=== PATIENT | female | born 1950 | race African-American/Black ===

== ENCOUNTER 2017-02-18 09:09 | Emergency (ER) | payer MEDICARE, MEDICAID ==
[~2017-02-18] VITALS: Ht 157.5 cm; Wt 75.0 kg
[~2017-02-18 09:09] MED LIST: AMLODIPINE5 MG PO; ANTIVERT OR; ATORVASTATIN CA40 MG PO; CLONIDINE0.2 MG OR; FISH OIL1000 MG PO; GRALISE300 MG PO; HYDROCHLORO25 MG/TAB PO; HYDROCHLOROT25 MG OR; HYDROCHLOROT25 MG PO; K-DUR/KLOR-CON10 ME1 OR; LATANOPROST0.005 % OU; LISINOP/HCTZ1 TA1 OR; LISINOPRIL20 M1 PO; LORATADINE10 M1 PO; LORTAB 5 OR; LOVASTATIN20 M1 PO; LOVASTATIN20 MG OR; LOVASTATIN40 MG PO; MEDDOSEPAK OR; NAPROSYN500 MG OR; NO HOME MEDS; NORVASC PO; NORVASC10 MG OR; NORVASC5 MG OR; PENICILLN VK500 M1 PO; PENICILLN VK500 MG PO; PERCOCET1 TA4 PO; POT CHLORIDE10 ME1 PO; ROBAXIN-750750 MG OR; TESSALON PER100 MG PO; ULTRAM50 M1 PO; ULTRAM50 MG OR; VITAMIN D-31000 UNIT PO; VITAMIN D33000 UNIT PO; ZESTRIL10 M1 PO; ZITHROMAX250 MG PO
[2017-02-18] MEDS ORDERED: UNKNOWN BP PILL (09:17)
[2017-02-18] MEDS ORDERED: "\\\"WATER PILL\\\"" (09:18)
[2017-02-18] MEDS ORDERED: CHOLESTEROL PILL (09:18)
[2017-02-18] MEDS ORDERED: BENADRY2 EX (09:28)
[2017-02-18] MEDS ORDERED: AMOXICILLIN500 MG PO (09:28)
[2017-02-18 09:31] VITALS: BP 127/86
== END 2017-02-18 09:35 | disposition home or self-care (01) ==
LOC: ED 09:09
DX: L30.9 Dermatitis, unspecified (principal); L03.221 Cellulitis of neck

== ENCOUNTER 2017-08-13 06:35 | Day surgery (SDC) | payer MEDICARE, MEDICAID ==
[~2017-08-13] VITALS: Ht 157.5 cm; Wt 72.6 kg
[~2017-08-13 06:35] MED LIST changes: +"\\\"WATER PILL\\\""; +AMOXICILLIN500 MG PO; +BENADRY2 EX; +CHOLESTEROL PILL; +CLARITIN10 M1 PO; +LATANOPROST0.005 % OP; +LIPITOR40 M1 PO; +MAXZIDE PO; +SYSTANE ULTRA OP; +UNKNOWN BP PILL
[2017-08-13 08:50] VITALS: BP 149/96
== END 2017-08-13 08:45 | disposition home or self-care (01) ==
LOC: ENDO 06:35
PROVIDERS: ATTEND Surgery
PROC: 0DJD8ZZ Inspection of Lower Intestinal Tract, Via Natural or Artificial Opening Endoscopic (ICD-10-PCS; principal; 2017-08-13)
DX: Z12.11 Encounter for screening for malignant neoplasm of colon (principal)

== ENCOUNTER 2018-03-14 16:33 | Emergency (ER) | payer OTHER, MEDICARE, MEDICAID ==
[~2018-03-14] VITALS: Ht 157.5 cm; Wt 80.0 kg
[2018-03-14] MEDS ORDERED: MELOXICAM15 MG PO (16:59)
[2018-03-14] MEDS ORDERED: ATORVASTATIN CA80 MG PO (17:00)
[2018-03-14] MEDS ORDERED: MAXZIDE-2537.5 MG/TA PO (17:00)
[2018-03-14] MEDS ORDERED: KLOR-CON 1010 MEQ PO (17:01)
[2018-03-14] MEDS ORDERED: ULTRAM50 M1 PO (17:20)
[2018-03-14 17:35] VITALS: BP 131/74
== END 2018-03-14 17:35 | disposition home or self-care (01) | DRG 605 ==
LOC: ED 16:33
DX: S50.01XA Contusion of right elbow, initial encounter (principal); W22.09XA Striking against other stationary object, initial encounter; Y93.E9 Activity, other interior property and clothing maintenance; Y92.009 Unspecified place in unspecified non-institutional (private) residence as the place of occurrence of the external cause

== ENCOUNTER 2018-05-08 17:06 | Emergency (ER) | payer MEDICARE, MEDICAID ==
[~2018-05-08] VITALS: Ht 157.5 cm; Wt 70.0 kg
[~2018-05-08 17:06] MED LIST changes: +ATORVASTATIN CA80 MG PO; +KLOR-CON 1010 MEQ PO; +MAXZIDE-2537.5 MG/TA PO; +MELOXICAM15 MG PO
[2018-05-08] MEDS ORDERED: ULTRAM50 M1 PO (17:28)
[2018-05-08] MEDS ORDERED: MEDDOSEPAK PO (17:28)
[2018-05-08 17:37] VITALS: BP 134/88
== END 2018-05-08 17:55 | disposition home or self-care (01) ==
LOC: ED 17:06
DX: M17.12 Unilateral primary osteoarthritis, left knee (principal); M25.562 Pain in left knee

== ENCOUNTER → 2018-07-08 | Outpatient (REF) | payer MEDICARE, MEDICAID ==
[~2018-07-08] MED LIST changes: +MEDDOSEPAK PO
[2018-07-08 09:44] LABS: ALBUMIN 3.8 g/dL (3.2-5.0); ALKALINE PHOSPHATASE 99 u/l (38-126); ANION GAP 10 (6-22 (CALC)); BILIRUBIN, TOTAL 0.6 mg/dL (0.0-1.4); BUN 15 mg/dL (8-23); BUN/CREATININE RATIO 20 (12-20 (CALC)); CALCULATED LDLCHOLESTEROL 88 mg/dL (62-129 (CALC)); CARBON DIOXIDE 28 mmol/l (22-30); CHLORIDE 108 mmol/l (95-108); CHOLESTEROL HDL RATIO 2.6 (<4.4 (CALC)); CREATININE 0.7 mg/dL (0.5-1.0); GFR > 60 ML/MIN (>=60 (CALC)); GFR FOR AFR.AMER. > 60 ML/MIN (>=60 (CALC)); HDL CHOLESTEROL 63 mg/dL (>=40); POTASSIUM 3.4 mmol/l (3.5-5.1); SGOT/AST 23 u/l (9-36); SODIUM 143 mmol/l (137-146); TOTAL CHOLESTEROL 167 mg/dl (0-199); TOTAL PROTEIN 7.1 g/dL (6.3-8.2); TOTAL TRIGLYCERIDES 78 mg/dl (30-149); VLDL CHOLESTROL 16 mg/dl (1-41 (CALC))
[2018-07-08 09:53] LABS: HEMATOCRIT 35.6 % (37.0-47.0); HEMOGLOBIN 11.7 g/dl (12.0-16.0); MEAN CELL VOLUME 97.3 fL CALC (80.0-100.0); MEAN CORPUSCULAR HGB CONC 32.9 g/L CALC (32.0-36.0); RED BLOOD COUNT 3.66 mill/uL (4.20-5.60); RED CELL DISTRI WIDTH 12.1 % (11.5-15.5)
== END | disposition home or self-care (01) ==
LOC: LAB 09:04
PROVIDERS: ATTEND Internal Medicine
DX: E78.49 Other hyperlipidemia (principal); I10 Essential (primary) hypertension; M17.0 Bilateral primary osteoarthritis of knee; Z79.899 Other long term (current) drug therapy

== ENCOUNTER 2019-03-08 05:30 | Emergency (ER) | payer MEDICARE ==
[~2019-03-08] VITALS: Ht 157.5 cm; Wt 72.7 kg
[2019-03-08] MEDS ORDERED: VOLTAREN - GENE75 MG PO (06:34)
[2019-03-08] MEDS ORDERED: LISINOPRIL40 MG PO (06:34)
[2019-03-08] MEDS ORDERED: AMLODIPINE BESYL5 MG PO (06:34)
[2019-03-08 06:50] VITALS: BP 177/105
== END 2019-03-08 06:55 | disposition home or self-care (01) ==
LOC: ED 05:30
DX: M17.12 Unilateral primary osteoarthritis, left knee (principal); I10 Essential (primary) hypertension

== ENCOUNTER 2019-03-09 15:49 | Emergency (ER) | payer MEDICARE ==
[~2019-03-09] VITALS: Ht 157.5 cm; Wt 80.0 kg
[~2019-03-09 15:49] MED LIST changes: +AMLODIPINE BESYL5 MG PO; +LISINOPRIL40 MG PO; +VOLTAREN - GENE75 MG PO
[2019-03-09 16:32] LABS: HEMATOCRIT 35.1 % (37.0-47.0); HEMOGLOBIN 11.5 g/dl (12.0-16.0); IMMATURE GRANULOCYTES 0.2 % (0.0-5.0); MEAN CELL VOLUME 96.4 fL CALC (80.0-100.0); MEAN CORPUSCULAR HGB 31.6 pG CALC (26.0-32.0); MEAN CORPUSCULAR HGB CONC 32.8 g/L CALC (32.0-36.0); NEUT# 5.69 thou/uL (2.00-7.15); RED BLOOD COUNT 3.64 mill/uL (4.20-5.60); RED CELL DISTRI WIDTH 12.3 % (11.5-15.5)
[2019-03-09 16:59] LABS: ALBUMIN 4.2 g/dL (3.2-5.0); ALKALINE PHOSPHATASE 122 u/l (38-126); ANION GAP 14 (6-22 (CALC)); BILIRUBIN, TOTAL 0.4 mg/dL (0.0-1.4); BUN 17 mg/dL (8-23); BUN/CREATININE RATIO 22 (12-20 (CALC)); CARBON DIOXIDE 25 mmol/l (22-30); CHLORIDE 108 mmol/l (95-108); CREATININE 0.8 mg/dL (0.5-1.0); GFR > 60 ML/MIN (>=60 (CALC)); GFR FOR AFR.AMER. > 60 ML/MIN (>=60 (CALC)); POTASSIUM 3.4 mmol/l (3.5-5.1); SGOT/AST 21 u/l (9-36); SODIUM 144 mmol/l (137-146); TOTAL PROTEIN 7.4 g/dL (6.3-8.2)
[2019-03-09 17:40] VITALS: BP 150/92
== END 2019-03-09 17:40 | disposition home or self-care (01) ==
LOC: ED 15:49
DX: M25.562 Pain in left knee (principal); R22.42 Localized swelling, mass and lump, left lower limb

== ENCOUNTER 2019-10-10 | Emergency (ER) | payer MEDICARE, MEDICAID ==
[2019-10-10] MEDS ORDERED: MELOXICAM7.5 MG PO (03:32)
[2019-10-10] MEDS ORDERED: NORVASC5 M1 PO (03:32)
[2019-10-10] MEDS ORDERED: BENADRYL 50MG C50 MG PO ×2 (03:39)
[2019-10-10] MEDS ORDERED: SYNALAR CREAM0.025 % TOP ×2 (03:39)
== END 2019-10-10 04:15 | disposition home or self-care (01) ==
DX: L30.9 Dermatitis, unspecified (principal); I10 Essential (primary) hypertension

== ENCOUNTER 2019-10-26 | Emergency (ER) | payer MEDICARE, MEDICAID ==
[~2019-10-26] MED LIST changes: +BENADRYL 50MG C50 MG PO; +MELOXICAM7.5 MG PO; +NORVASC5 M1 PO; +SYNALAR CREAM0.025 % TOP
[2019-10-26] MEDS ORDERED: ULTRAM50 MG PO (14:50)
== END 2019-10-26 15:14 | disposition home or self-care (01) ==
DX: S20.219A Contusion of unspecified front wall of thorax, initial encounter (principal); S60.512A Abrasion of left hand, initial encounter; M25.561 Pain in right knee; I10 Essential (primary) hypertension; W01.198A Fall on same level from slipping, tripping and stumbling with subsequent striking against other object, initial encounter; Y92.89 Other specified places as the place of occurrence of the external cause

== ENCOUNTER 2019-11-03 | Emergency (ER) | payer MEDICARE, MEDICAID ==
[~2019-11-03] MED LIST changes: +ULTRAM50 MG PO
[2019-11-03 12:37] LABS: HEMATOCRIT 35.1 % (37.0-47.0); HEMOGLOBIN 11.3 g/dl (12.0-16.0); IMMATURE GRANULOCYTES 0.3 % (0.0-5.0); MEAN CELL VOLUME 96.7 fL CALC (80.0-100.0); MEAN CORPUSCULAR HGB 31.1 pG CALC (26.0-32.0); MEAN CORPUSCULAR HGB CONC 32.2 g/L CALC (32.0-36.0); NEUT# 3.87 thou/uL (2.00-7.15); RED BLOOD COUNT 3.63 mill/uL (4.20-5.60); RED CELL DISTRI WIDTH 11.9 % (11.5-15.5)
[2019-11-03 13:00] LABS: ALBUMIN 3.9 g/dL (3.2-5.0); ALKALINE PHOSPHATASE 115 u/l (38-126); ANION GAP 12 (6-22 (CALC)); BUN 14 mg/dL (8-23); BUN/CREATININE RATIO 20 (12-20 (CALC)); CARBON DIOXIDE 26 mmol/l (22-30); CHLORIDE 107 mmol/l (95-108); CREATININE 0.7 mg/dL (0.5-1.0); GFR > 60 ML/MIN (>=60 (CALC)); GFR FOR AFR.AMER. > 60 ML/MIN (>=60 (CALC)); SGOT/AST 25 u/l (9-36); SODIUM 141 mmol/l (137-146); TOTAL PROTEIN 7.3 g/dL (6.3-8.2)
[2019-11-03 13:05] LABS: BILIRUBIN, TOTAL 0.7 mg/dL (0.0-1.4)
== END 2019-11-03 13:31 | disposition left against medical advice (07) ==
PROVIDERS: Family Medicine
DX: R07.9 Chest pain, unspecified (principal); I10 Essential (primary) hypertension; Z91.19 Patient's noncompliance with other medical treatment and regimen

== ENCOUNTER 2020-05-01 04:44 | Emergency (ER) | payer MEDICARE, MEDICAID ==
[~2020-05-01] VITALS: Ht 157.5 cm; Wt 68.2 kg
[2020-05-01] MEDS ORDERED: TIMOLOL 0.5%5 ML OU (05:06)
[2020-05-01] MEDS ORDERED: LATANOPROST0.005 % OU (05:06)
[2020-05-01 05:30] LABS: HEMATOCRIT 33.5 % (37.0-47.0); HEMOGLOBIN 10.8 g/dl (12.0-16.0); IMMATURE GRANULOCYTES 0.3 % (0.0-5.0); MEAN CELL VOLUME 95.4 fL CALC (80.0-100.0); MEAN CORPUSCULAR HGB 30.8 pG CALC (26.0-32.0); MEAN CORPUSCULAR HGB CONC 32.2 g/dL CAL (32.0-36.0); NEUT# 1.97 thou/uL (2.00-7.15); RED BLOOD COUNT 3.51 mill/uL (4.20-5.60); RED CELL DISTRI WIDTH 11.9 % (11.5-15.5)
[2020-05-01 05:44] LABS: ALBUMIN 3.6 g/dL (3.2-5.0); ALKALINE PHOSPHATASE 103 u/l (38-126); ANION GAP 9 (6-22 (CALC)); BILIRUBIN, TOTAL 0.5 mg/dL (0.0-1.4); BUN 16 mg/dL (8-23); BUN/CREATININE RATIO 18 (12-20 (CALC)); CARBON DIOXIDE 29 mmol/l (22-30); CHLORIDE 105 mmol/l (95-108); CREATININE 0.9 mg/dL (0.5-1.0); GFR > 60 ML/MIN (>=60 (CALC)); GFR FOR AFR.AMER. > 60 ML/MIN (>=60 (CALC)); POTASSIUM 3.8 mmol/l (3.5-5.1); SGOT/AST 38 u/l (9-36); SODIUM 140 mmol/l (137-146); TOTAL PROTEIN 6.6 g/dL (6.3-8.2)
[2020-05-01 05:51] VITALS: BP 102/65
[2020-05-01] MEDS ORDERED: HYDROCODONE POLISTIR PO (05:59)
--- NOTE | 2020-05-06 15:22 | NUR ---
Notified patient of positive Covid results. Patient denies any symptoms at this time. Advised patient to quarantine until contacted by [facility] with further instructions. Advised patient to return to ED with any difficulty breathing or other urgent needs. Patient verbalized understanding.
== END 2020-05-01 06:12 | disposition home or self-care (01) ==
LOC: ED 04:44
PROVIDERS: Family Medicine
DX: U07.1 COVID-19 (principal); I10 Essential (primary) hypertension

== ENCOUNTER 2020-06-24 19:57 | Emergency (ER) | payer MEDICARE, MEDICAID ==
[~2020-06-24] VITALS: Ht 157.5 cm; Wt 72.7 kg
[~2020-06-24 19:57] MED LIST changes: +HYDROCODONE POLISTIR PO; +TIMOLOL 0.5%5 ML OU
[2020-06-24 20:43] LABS: URINE BILIRUBIN - DIPSTICK NEGATIVE (NEGATIVE); URINE BLOOD DIPSTICK TRACE-INTACT (NEGATIVE); URINE COLOR YELLOW; URINE GLUCOSE - DIPSTICK NEGATIVE (NEGATIVE); URINE KETONE NEGATIVE (NEGATIVE); URINE LEUK ESTERASE NEGATIVE (NEGATIVE); URINE NITRITE - DIPSTICK NEGATIVE (Negative); URINE PROTEIN - DIPSTICK 100 mg/dL (NEG-TRACE); URINE SPECIFIC GRAVITY 1.025; URINE UROBILINOGEN - DIPSTICK 0.2 E.U./dL (0.2)
[2020-06-24 20:44] LABS: HEMATOCRIT 38.4 % (37.0-47.0); HEMOGLOBIN 12.4 g/dl (12.0-16.0); IMMATURE GRANULOCYTES 0.4 % (0.0-5.0); MEAN CELL VOLUME 95.8 fL CALC (80.0-100.0); MEAN CORPUSCULAR HGB 30.9 pG CALC (26.0-32.0); MEAN CORPUSCULAR HGB CONC 32.3 g/dL CAL (32.0-36.0); NEUT# 6.42 thou/uL (2.00-7.15); RED BLOOD COUNT 4.01 mill/uL (4.20-5.60); RED CELL DISTRI WIDTH 12.6 % (11.5-15.5)
[2020-06-24 20:44] LABS: URINE RBC 0-2 RBC/hpf (0-5); URINE SQUAMOUS EPITHELIAL CELL FEW EPI/hpf (0-FEW); URINE WBC 0-2 WBC/hpf (0-5)
[2020-06-24 20:57] LABS: ALBUMIN 4.3 g/dL (3.2-5.0); ALKALINE PHOSPHATASE 101 u/l (38-126); AMYLASE 86 u/l (30-110); BILIRUBIN, TOTAL 0.5 mg/dL (0.0-1.4); BUN 13 mg/dL (8-23); BUN/CREATININE RATIO 19 (12-20 (CALC)); CARBON DIOXIDE 29 mmol/l (22-30); CHLORIDE 106 mmol/l (95-108); CREATININE 0.7 mg/dL (0.5-1.0); GFR > 60 ML/MIN (>=60 (CALC)); GFR FOR AFR.AMER. > 60 ML/MIN (>=60 (CALC)); LIPASE 40 u/l (23-300); SGOT/AST 30 u/l (9-36); SODIUM 141 mmol/l (137-146); TOTAL PROTEIN 7.9 g/dL (6.3-8.2)
[2020-06-24 20:58] LABS: ANION GAP 9 (6-22 (CALC)); POTASSIUM 3.3 mmol/l (3.5-5.1)
[2020-06-24 21:09] LABS: MYOGLOBIN 26 ng/mL (0 - 62)
[2020-06-24] MEDS ORDERED: PHENERGAN25 MG/TAB PO (21:21)
[2020-06-24 21:30] VITALS: BP 154/96
== END 2020-06-24 21:36 | disposition home or self-care (01) ==
LOC: ED 19:57
PROVIDERS: Family Medicine
DX: R11.2 Nausea with vomiting, unspecified (principal); R42 Dizziness and giddiness; I10 Essential (primary) hypertension

== ENCOUNTER 2024-10-04 22:30 | Emergency (ER) | payer MEDICARE, MEDICAID ==
[~2024-10-04] VITALS: Ht 157.5 cm; Wt 72.0 kg
[~2024-10-04 22:30] MED LIST changes: +PHENERGAN25 MG/TAB PO
[2024-10-04] MEDS ORDERED: cloNIDine HCL 0.1 MG/TAB PO ONE (23:25)
[2024-10-04] MEDS ORDERED: traMADol HCL 50 MG/TAB PO ONE (23:25)
[2024-10-04] MEDS ORDERED: KETOROLAC TROMETHAMINE 30 MG/ML SDV IM ONE (23:25)
[2024-10-05 00:02] LABS: CREATININE 0.9 mg/dL (0.5-1.0); POTASSIUM 3.2 mmol/l (3.5-5.1)
[2024-10-05] MEDS ORDERED: CARDIZEM CD240 MG PO (00:21)
[2024-10-05 00:50] VITALS: BP 187/111
== END 2024-10-05 00:50 | disposition home or self-care (01) ==
LOC: ED 22:30
PROVIDERS: Family Medicine
DX: M25.562 Pain in left knee (principal); I10 Essential (primary) hypertension; T46.5X6A Underdosing of other antihypertensive drugs, initial encounter; Z91.128 Patient's intentional underdosing of medication regimen for other reason

== ENCOUNTER 2024-11-14 11:17 | Emergency (ER) | payer MEDICARE, MEDICAID ==
[~2024-11-14] VITALS: Ht 157.5 cm; Wt 77.0 kg
[2024-11-14] VITALS (8 sets, daily range): BP systolic 104–121; BP diastolic 63–80
[~2024-11-14 11:17] MED LIST changes: +CARDIZEM CD240 MG PO
[2024-11-14 12:33] LABS: BASO% 0.3 % (0-3); EOS% 1.1 % (0-8); HEMATOCRIT 35.3 % (37.0-47.0); HEMOGLOBIN 11.1 g/dl (12.0-16.0); IMMATURE GRANULOCYTES 0.1 % (0.0-5.0); LYMPH% 27.3 % (15-41); MEAN CELL VOLUME 101.1 fL CALC (80.0-100.0); MEAN CORPUSCULAR HGB 31.8 pG CALC (26.0-32.0); MEAN CORPUSCULAR HGB CONC 31.4 g/dL CAL (32.0-36.0); MONO% 8.1 % (2-13); NEUT# 4.52 thou/uL (2.00-7.15); NEUT% 63.1 % (42-76); RED BLOOD COUNT 3.49 mill/uL (4.20-5.60); RED CELL DISTRI WIDTH 12.5 % (11.5-15.5)
[2024-11-14 12:39] LABS: ALBUMIN 3.7 g/dL (3.2-5.0); ALKALINE PHOSPHATASE 81 u/l (38-126); ANION GAP 8 (6-22 (CALC)); BILIRUBIN, TOTAL 0.7 mg/dL (0.02-1.3); BUN 24 mg/dL (8-23); BUN/CREATININE RATIO 22 (12-20 (CALC)); CARBON DIOXIDE 28 mmol/l (22-30); CHLORIDE 110 mmol/l (95-108); CREATININE 1.1 mg/dL (0.5-1.0); ESTIMATED GFR 53 ML/MIN (>=90 (CALC)); POTASSIUM 3.6 mmol/l (3.5-5.1); SGOT/AST 25 u/l (9-36); SODIUM 142 mmol/l (137-146); TOTAL PROTEIN 7.1 g/dL (6.3-8.2)
== END 2024-11-14 13:32 | disposition home or self-care (01) ==
LOC: ED 11:17
PROVIDERS: Family Medicine
DX: R53.1 Weakness (principal); I10 Essential (primary) hypertension